=== PATIENT | male | born 1985 | race Caucasian/White ===

== ENCOUNTER 2017-05-18 04:23 | Inpatient (IN) | payer MEDICAID ==
[2017-05-18] VITALS (31 sets, daily range): BP systolic 93–144; BP diastolic 37–83
[~2017-05-18] VITALS: Ht 165.1 cm; Wt 122.1 kg
[~2017-05-18 04:23] MED LIST: OMEP20 PO; PROP10TA73 PO; [UNRECOGNIZED DRUG - CODE] OS
[2017-05-18 05:19] LABS: BASOPHILS # (AUTO) 0.01 K/uL (0.00-0.20); EOSINOPHILS # (AUTO) 0.06 K/uL (0.00-0.70); EOSINOPHILS % (AUTO) 0.21 % (1.0-6.0); LYMPHOCYTES # (AUTO) 2.1 K/uL (1.0-4.8); LYMPHOCYTES % (AUTO) 7.2 % (22.0-44.0); MEAN CORPUSCULAR HEMOGLOBIN 34.5 pg (26.0-34.0); MEAN CORPUSCULAR HGB CONC 34.9 G/dL (31.0-37.0); MEAN CORPUSCULAR VOLUME 99 fL (80-100); MONOCYTES # (AUTO) 2.5 K/uL (0.1-1.0); MONOCYTES % (AUTO) 8.6 % (2.0-9.0); NEUTROPHILS # (AUTO) 24.2 K/uL (1.8-7.7); RED BLOOD CELL COUNT(AUTO) 1.58 MIL/uL (4.50-5.90); RED CELL DISTRIBUTION WIDTH 17.3 % (11.5-14.5)
[2017-05-18 05:30] LABS: CALCIUM, TOTAL 7.8 mg/dL (8.8-10.5); CREATININE 1.61 mg/dL (0.60-1.30); HEMATOCRIT 15.6 % (41-53); HEMOGLOBIN 5.5 g/dL (13.5-17.5)
[2017-05-18 05:31] LABS: INR 2.3 (0.9-1.1); PROTHROMBIN TIME 24.7 SEC (9.4-11.6)
[2017-05-18 05:32] LABS: WHITE BLOOD COUNT (AUTO) 32.5 K/uL (4.5-11.0)
[2017-05-18 05:36] LABS: ALBUMIN 1.5 g/dL (3.4-5.0); BILIRUBIN,TOTAL 12.3 mg/dL (0.1-1.0); TOTAL PROTEIN, SERUM 4.2 g/dL (6.4-8.2)
[2017-05-18] MEDS ORDERED: SODIUM CHLORIDE 0.9% 1,000 ML IV ONE ×2 (05:45→11:30)
[2017-05-18 05:51] LABS: PLATELET COUNT (AUTO) 101 K/uL (150-450); RBC MORPHOLOGY COMMENT ABNORMAL RBC MORPH
[2017-05-18] MEDS ORDERED: PANTOPRAZOLE SODIUM 40 MG/VIAL IVP ONE (06:00)
[2017-05-18 06:22] LABS: APPEARANCE,URINE CLOUDY (CLEAR); GLUCOSE, URINE (UA) NEGATIVE (NEGATIVE); KETONES,URINE TRACE mg/dL (NEGATIVE); LEUKOCYTE ESTERASE ,URINE TRACE (NEGATIVE); OCCULT BLOOD,URINE NEGATIVE (NEGATIVE); PROTEIN,URINE NEGATIVE (NEGATIVE)
[2017-05-18 06:24] LABS: ADD UA MICROSCOPIC YES
[2017-05-18 06:25] LABS: RBC,URINE 0-2 /HPF (0-2); SQUAMOUS EPITHELIAL CELL,UR Few /LPF (None Seen)
[2017-05-18] MEDS ORDERED: PANTOPRAZOLE SODIUM 80 MG in SODIUM CHLORIDE 0.9% 100 ML IV SCH (07:00)
[2017-05-18] MEDS ORDERED: 0.9% SODIUM CHLORIDE 10 ML SYRINGE IVP PRN (07:00)
[2017-05-18] MEDS ORDERED: OCTREOTIDE ACETATE 500 MCG in DEXTROSE 5%-WATER 97.5 ML IV SCH (07:00)
[2017-05-18] MEDS ORDERED: ONDANSETRON HCL 4 MG/2 ML VIAL IVP PRN (07:00)
[2017-05-18] MEDS ORDERED: LORazepam 2 MG/ML VIAL IVP ONE (08:15)
[2017-05-18] MEDS: PIPERACILLIN/TAZO 3.375 GM/D5W 50 ML IV SCH ×3 (09:00→19:52)
[2017-05-18 18:54] LABS: MEAN CORPUSCULAR HEMOGLOBIN 31.9 pg (26.0-34.0); MEAN CORPUSCULAR HGB CONC 34.5 G/dL (31.0-37.0); MEAN CORPUSCULAR VOLUME 93 fL (80-100); RED BLOOD CELL COUNT(AUTO) 2.07 MIL/uL (4.50-5.90); RED CELL DISTRIBUTION WIDTH 21.4 % (11.5-14.5); WHITE BLOOD COUNT (AUTO) 29.2 K/uL (4.5-11.0)
[2017-05-18 18:57] LABS: HEMATOCRIT 19.2 % (41-53); HEMOGLOBIN 6.6 g/dL (13.5-17.5)
[2017-05-18 18:58] LABS: INR 2.4 (0.9-1.1); PROTHROMBIN TIME 25.1 SEC (9.4-11.6)
[2017-05-18 18:59] LABS: ALBUMIN 1.3 g/dL (3.4-5.0); BILIRUBIN,TOTAL 11.6 mg/dL (0.1-1.0); CALCIUM, TOTAL 7.6 mg/dL (8.8-10.5); CREATININE 1.79 mg/dL (0.60-1.30); POTASSIUM 4.2 mmol/L (3.5-5.1)
[2017-05-18] MEDS ORDERED: PNEUMOCOCCAL VACCINE POLYVALENT 0.5 ML VIAL [PPSV23] IM ONE (19:30)
[2017-05-18] MEDS ORDERED: FUROSEMIDE 20 MG/2 ML VIAL IVP ONE (19:30)
[2017-05-18] MEDS ORDERED: INFLUENZA VIRUS VACCINE QVS 2017-18 (3YR+)/PF 60 MCG/0.5 ML SYRINGE IM ONE (19:30)
[2017-05-18 20:17] LABS: PLATELET COUNT (AUTO) 75 K/uL (150-450)
[2017-05-18 20:22] LABS: BAND NEUTROPHILS % (MANUAL) 7 % (1-5); LYMPHOCYTES % (MANUAL) 7 % (22-44); METAMYELOCYTES % 1 % (0-0); TOTAL CELLS COUNTED 100
[2017-05-18 20:23] LABS: WBC MORPHOLOGY TOXIC GRANULATION
[2017-05-18 20:24] LABS: RBC MORPHOLOGY COMMENT ABNORMAL RBC MORPH
[2017-05-19] VITALS (27 sets, daily range): BP systolic 123–154; BP diastolic 47–88
[2017-05-19 01:08] LABS: HEMATOCRIT 23.8 % (41-53); HEMOGLOBIN 7.9 g/dL (13.5-17.5)
[2017-05-19] MEDS ORDERED: MIDAZOLAM HCL 2 MG/2 ML VIAL IVP ONE (01:48)
[2017-05-19] MEDS ORDERED: PROPOFOL 1% 20 ML VIAL IVP ONE (01:49)
[2017-05-19] MEDS ORDERED: LIDOCAINE HCL/PF 2% 5 ML VIAL IM ONE (01:49)
[2017-05-19] MEDS ORDERED: METOCLOPRAMIDE HCL 5 MG/ML 2 ML VIAL IVP ONE (01:49)
[2017-05-19] MEDS: PIPERACILLIN/TAZO 3.375 GM/D5W 50 ML IV SCH ×4 (03:39→20:19)
[2017-05-19 07:30] LABS: ALBUMIN 1.6 g/dL (3.4-5.0); BILIRUBIN,TOTAL 13.5 mg/dL (0.1-1.0); CALCIUM, TOTAL 7.7 mg/dL (8.8-10.5); CREATININE 1.53 mg/dL (0.60-1.30); POTASSIUM 3.7 mmol/L (3.5-5.1); TOTAL PROTEIN, SERUM 4.3 g/dL (6.4-8.2)
[2017-05-19 07:32] LABS: MEAN CORPUSCULAR HGB CONC 34.3 G/dL (31.0-37.0); MEAN CORPUSCULAR VOLUME 91 fL (80-100); RED BLOOD CELL COUNT(AUTO) 2.23 MIL/uL (4.50-5.90); RED CELL DISTRIBUTION WIDTH 23.6 % (11.5-14.5)
[2017-05-19 07:38] LABS: INR 1.8 (0.9-1.1); PROTHROMBIN TIME 19.4 SEC (9.4-11.6)
[2017-05-19 08:07] LABS: HEPATITIS Bs ANTIGEN SCREEN P Negative (Negative); HEPATITIS C AB SCREEN <0.1 s/co ratio (0.0-0.9)
[2017-05-19 08:48] LABS: HEMOGLOBIN 6.9 g/dL (13.5-17.5)
[2017-05-19 08:49] LABS: HEMATOCRIT 20.1 % (41-53)
[2017-05-19] MEDS ORDERED: IPRATROPIUM BROMIDE 0.5 MG/2.5 ML NEB SOLUTION NEB PRN (09:30)
[2017-05-19] MEDS ORDERED: ALBUTEROL SULFATE 2.5 MG/0.5 ML NEB SOLUTION NEB PRN (09:30)
[2017-05-19] MEDS: PANTOPRAZOLE SODIUM 80 MG in SODIUM CHLORIDE 0.9% 100 ML IV SCH ×2 (09:30→20:16)
[2017-05-19] MEDS ORDERED: MORPHINE SULFATE 2 MG/ML SYRINGE IVP PRN (09:30)
[2017-05-19] MEDS ORDERED: ONDANSETRON HCL 4 MG/2 ML VIAL IVP PRN (09:30)
[2017-05-19] MEDS ORDERED: MAGNESIUM HYDROXIDE SUSPENSION 30 ML UDCUP PO PRN (09:30)
[2017-05-19] MEDS ORDERED: BISACODYL 10 MG RECTAL RECTAL SUPPOSITORY PR PRN (09:30)
[2017-05-19] MEDS ORDERED: LORazepam 2 MG/ML VIAL IVP PRN (09:45)
[2017-05-19] MEDS: ChlordiazePOXIDE HCL 25 MG CAPSULE PO SCH ×2 (12:57→18:28)
[2017-05-19] MEDS: ALBUMIN HUMAN 25%-25GM/100ML 100 ML IV SCH (15:10)
[2017-05-19 15:22] LABS: BAND NEUTROPHILS % (MANUAL) 7 % (1-5); LYMPHOCYTES % (MANUAL) 6 % (22-44); METAMYELOCYTES % 3 % (0-0); TOTAL CELLS COUNTED 100
[2017-05-19 15:23] LABS: RBC MORPHOLOGY COMMENT ABNORMAL R
[2017-05-19 15:24] LABS: PLATELET COUNT (AUTO) 60 K/uL (150-450)
[2017-05-19] MEDS ORDERED: FUROSEMIDE 40 MG/4 ML VIAL IVP SCH (16:00)
[2017-05-19 16:35] LABS: HEMATOCRIT 22.1 % (41-53); HEMOGLOBIN 7.6 g/dL (13.5-17.5)
[2017-05-19] MEDS: DOCUSATE SODIUM 100 MG CAPSULE PO SCH (20:20)
[2017-05-19 22:33] LABS: HEMATOCRIT 21.5 % (41-53); HEMOGLOBIN 7.3 g/dL (13.5-17.5)
[2017-05-20] MEDS: ChlordiazePOXIDE HCL 25 MG CAPSULE PO SCH ×4 (01:40→18:00)
[2017-05-20 03:32] VITALS: BP 134/58
[2017-05-20] MEDS: PIPERACILLIN/TAZO 3.375 GM/D5W 50 ML IV SCH ×4 (03:50→20:03)
[2017-05-20] MEDS: PANTOPRAZOLE SODIUM 80 MG in SODIUM CHLORIDE 0.9% 100 ML IV SCH (06:02)
[2017-05-20 07:38] LABS: INR 1.9 (0.9-1.1); PROTHROMBIN TIME 20.1 SEC (9.4-11.6)
[2017-05-20 07:45] VITALS: BP 116/67
[2017-05-20 07:48] LABS: HEMATOCRIT 25.1 % (41-53); HEMOGLOBIN 8.5 g/dL (13.5-17.5); MEAN CORPUSCULAR HEMOGLOBIN 30.7 pg (26.0-34.0); MEAN CORPUSCULAR HGB CONC 33.6 G/dL (31.0-37.0); MEAN CORPUSCULAR VOLUME 91 fL (80-100); RED BLOOD CELL COUNT(AUTO) 2.76 MIL/uL (4.50-5.90); RED CELL DISTRIBUTION WIDTH 22.8 % (11.5-14.5); WHITE BLOOD COUNT (AUTO) 28.3 K/uL (4.5-11.0)
[2017-05-20 08:05] LABS: ALANINE AMINOTRANSFERASE 51 U/L (12-78); ALBUMIN 2.2 g/dL (3.4-5.0); ANION GAP 6 mmol/L (8-16); ASPARTATE AMINOTRANSFERASE 140 U/L (15-37); BILIRUBIN,TOTAL 15.3 mg/dL (0.1-1.0); CARBON DIOXIDE 27 mmol/L (22-29); CHLORIDE 101 mmol/L (98-107); CREATININE 1.15 mg/dL (0.60-1.30); GLOMERULAR FILTR. RATE CALC > 60 mL/min (>60); POTASSIUM 3.2 mmol/L (3.5-5.1); SODIUM SERUM 134 mmol/L (136-145); TOTAL PROTEIN, SERUM 5.2 g/dL (6.4-8.2); UREA NITROGEN, BLOOD 36 mg/dL (7-18)
[2017-05-20] MEDS ORDERED: PANTOPRAZOLE SODIUM 40 MG/VIAL IVP SCH (09:00)
[2017-05-20] MEDS: DOCUSATE SODIUM 100 MG CAPSULE PO SCH ×2 (09:00→20:04)
[2017-05-20] MEDS ORDERED: SODIUM CHLORIDE 0.9% 1,000 ML IV ONE ×2 (09:53→10:30)
[2017-05-20 10:07] LABS: PLATELET COUNT (AUTO) 49 K/uL (150-450)
[2017-05-20 10:16] LABS: BAND NEUTROPHILS % (MANUAL) 10 % (1-5); LYMPHOCYTES % (MANUAL) 11 % (22-44); METAMYELOCYTES % 5 % (0-0); MYELOCYTES % 1 % (0-0); TOTAL CELLS COUNTED 100
[2017-05-20 10:18] LABS: RBC MORPHOLOGY COMMENT ABNORMAL R
[2017-05-20 12:18] VITALS: BP 121/71
[2017-05-20] MEDS: FUROSEMIDE 40 MG/4 ML VIAL IVP SCH (12:30)
[2017-05-20] MEDS: FOLIC ACID 1 MG TABLET PO SCH (12:30)
[2017-05-20] MEDS: SPIRONOLACTONE 50 MG TABLET PO SCH (12:30)
[2017-05-20] MEDS: MULTIVITAMINS, THERAPEUTIC TABLET PO SCH (12:30)
[2017-05-20] MEDS: ALBUMIN HUMAN 25%-25GM/100ML 100 ML IV SCH (12:31)
[2017-05-20 15:36] VITALS: BP 122/82
[2017-05-20] MEDS ORDERED: POTASSIUM CHLORIDE 20 MEQ ER TABLET PO ONE (16:15)
[2017-05-20] MEDS: THIAMINE HCL 100 MG TABLET PO SCH (16:24)
[2017-05-20] MEDS: PANTOPRAZOLE SODIUM 40 MG/VIAL IVP SCH (20:03)
[2017-05-20] MEDS: ACETAMINOPHEN 325 MG TABLET PO PRN (20:04)
[2017-05-20 20:27] VITALS: BP 130/58
[2017-05-20 23:56] VITALS: BP 116/51
[2017-05-21] MEDS: ChlordiazePOXIDE HCL 25 MG CAPSULE PO SCH ×5 (00:17→23:59)
[2017-05-21] MEDS ORDERED: LIDOCAINE HCL/PF 2% 5 ML VIAL IM ONE (00:34)
[2017-05-21] MEDS ORDERED: PROPOFOL 1% 20 ML VIAL IVP ONE (00:34)
[2017-05-21] MEDS: PIPERACILLIN/TAZO 3.375 GM/D5W 50 ML IV SCH ×4 (03:38→21:46)
[2017-05-21 05:16] VITALS: BP 111/50
[2017-05-21 06:11] LABS: HEMATOCRIT 23.4 % (41-53); HEMOGLOBIN 8.1 g/dL (13.5-17.5); MEAN CORPUSCULAR HEMOGLOBIN 31.4 pg (26.0-34.0); MEAN CORPUSCULAR HGB CONC 34.7 G/dL (31.0-37.0); MEAN CORPUSCULAR VOLUME 91 fL (80-100); PLATELET COUNT (AUTO) 46 K/uL (150-450); RED BLOOD CELL COUNT(AUTO) 2.58 MIL/uL (4.50-5.90); RED CELL DISTRIBUTION WIDTH 22.4 % (11.5-14.5)
[2017-05-21 06:14] LABS: WHITE BLOOD COUNT (AUTO) 24.7 K/uL (4.5-11.0)
[2017-05-21 06:15] LABS: INR 2.1 (0.9-1.1); PROTHROMBIN TIME 22.5 SEC (9.4-11.6)
[2017-05-21 06:26] LABS: ALANINE AMINOTRANSFERASE 49 U/L (12-78); ALBUMIN 2.2 g/dL (3.4-5.0); ANION GAP 9 mmol/L (8-16); ASPARTATE AMINOTRANSFERASE 133 U/L (15-37); BILIRUBIN,TOTAL 14.4 mg/dL (0.1-1.0); CALCIUM, TOTAL 7.6 mg/dL (8.8-10.5); CARBON DIOXIDE 26 mmol/L (22-29); CHLORIDE 99 mmol/L (98-107); CREATININE 1.26 mg/dL (0.60-1.30); GLOMERULAR FILTR. RATE CALC > 60 mL/min (>60); SODIUM SERUM 134 mmol/L (136-145); TOTAL PROTEIN, SERUM 5.1 g/dL (6.4-8.2); UREA NITROGEN, BLOOD 30 mg/dL (7-18)
[2017-05-21 06:54] LABS: POTASSIUM 2.9 mmol/L (3.5-5.1)
[2017-05-21 07:02] LABS: BAND NEUTROPHILS % (MANUAL) 8 % (1-5); LYMPHOCYTES % (MANUAL) 13 % (22-44); TOTAL CELLS COUNTED 100
[2017-05-21 07:45] VITALS: BP 143/86
[2017-05-21 07:59] VITALS: BP 115/73
[2017-05-21] MEDS: FOLIC ACID 1 MG TABLET PO SCH (08:06)
[2017-05-21] MEDS: DOCUSATE SODIUM 100 MG CAPSULE PO SCH ×2 (08:06→21:42)
[2017-05-21] MEDS: THIAMINE HCL 100 MG TABLET PO SCH (08:06)
[2017-05-21] MEDS: PANTOPRAZOLE SODIUM 40 MG/VIAL IVP SCH (08:06)
[2017-05-21] MEDS: MULTIVITAMINS, THERAPEUTIC TABLET PO SCH (08:06)
[2017-05-21] MEDS: SPIRONOLACTONE 50 MG TABLET PO SCH (08:07)
[2017-05-21] MEDS: HYDROCODONE/ACETAMINOPHEN 5-325 MG TABLET PO PRN (10:51)
[2017-05-21] MEDS: ALBUMIN HUMAN 25%-25GM/100ML 100 ML IV SCH (10:52)
[2017-05-21 11:37] VITALS: BP 109/53
[2017-05-21] MEDS ORDERED: POTASSIUM CHLORIDE 20 MEQ ER TABLET PO ONE ×2 (13:30→17:30)
[2017-05-21] MEDS: FUROSEMIDE 40 MG/4 ML VIAL IVP SCH (13:35)
[2017-05-21 15:36] VITALS: BP 136/64
[2017-05-21 20:01] VITALS: BP 121/57
[2017-05-22] VITALS (8 sets, daily range): BP systolic 108–120; BP diastolic 44–60
[2017-05-22] MEDS: PIPERACILLIN/TAZO 3.375 GM/D5W 50 ML IV SCH ×4 (03:46→20:46)
[2017-05-22] MEDS: ChlordiazePOXIDE HCL 25 MG CAPSULE PO SCH ×4 (05:26→23:20)
[2017-05-22 08:09] LABS: INR 2.2 (0.9-1.1); PROTHROMBIN TIME 22.8 SEC (9.4-11.6)
[2017-05-22] MEDS: SPIRONOLACTONE 50 MG TABLET PO SCH (08:10)
[2017-05-22] MEDS: FUROSEMIDE 40 MG/4 ML VIAL IVP SCH (08:10)
[2017-05-22] MEDS: PANTOPRAZOLE SODIUM 40 MG/VIAL IVP SCH ×2 (08:10→20:46)
[2017-05-22 08:11] LABS: ALANINE AMINOTRANSFERASE 45 U/L (12-78); ANION GAP 10 mmol/L (8-16); ASPARTATE AMINOTRANSFERASE 120 U/L (15-37); BILIRUBIN,TOTAL 12.6 mg/dL (0.1-1.0); CALCIUM, TOTAL 7.6 mg/dL (8.8-10.5); CARBON DIOXIDE 22 mmol/L (22-29); CHLORIDE 100 mmol/L (98-107); CREATININE 1.22 mg/dL (0.60-1.30); GLOMERULAR FILTR. RATE CALC > 60 mL/min (>60); POTASSIUM 3.9 mmol/L (3.5-5.1); SODIUM SERUM 132 mmol/L (136-145); TOTAL PROTEIN, SERUM 4.7 g/dL (6.4-8.2); UREA NITROGEN, BLOOD 25 mg/dL (7-18)
[2017-05-22] MEDS: DOCUSATE SODIUM 100 MG CAPSULE PO SCH ×2 (08:11→20:43)
[2017-05-22] MEDS: MULTIVITAMINS, THERAPEUTIC TABLET PO SCH (08:11)
[2017-05-22] MEDS: THIAMINE HCL 100 MG TABLET PO SCH (08:11)
[2017-05-22] MEDS: FOLIC ACID 1 MG TABLET PO SCH (08:11)
[2017-05-22 08:53] LABS: HEMATOCRIT 24.5 % (41-53); HEMOGLOBIN 8.4 g/dL (13.5-17.5); MEAN CORPUSCULAR HEMOGLOBIN 31.1 pg (26.0-34.0); MEAN CORPUSCULAR HGB CONC 34.4 G/dL (31.0-37.0); MEAN CORPUSCULAR VOLUME 91 fL (80-100); RED CELL DISTRIBUTION WIDTH 24.8 % (11.5-14.5); WHITE BLOOD COUNT (AUTO) 14.8 K/uL (4.5-11.0)
[2017-05-22 09:29] LABS: BAND NEUTROPHILS % (MANUAL) 2 % (1-5); EOSINOPHILS % (MANUAL) 1 % (1-6); LYMPHOCYTES % (MANUAL) 14 % (22-44); METAMYELOCYTES % 1 % (0-0); TOTAL CELLS COUNTED 100
[2017-05-22 09:30] LABS: WBC MORPHOLOGY TOXIC GRANULATION
[2017-05-22 09:31] LABS: PLATELET COUNT (AUTO) 45 K/uL (150-450)
[2017-05-22 09:32] LABS: RBC MORPHOLOGY COMMENT ABNORMAL RBC MORPH
[2017-05-22] MEDS: LACTULOSE 20 GM/30 ML SOLUTION UDCUP PO SCH ×2 (11:14→20:46)
[2017-05-22] MEDS: ALBUMIN HUMAN 25%-25GM/100ML 100 ML IV SCH (11:14)
[2017-05-22] MEDS: HYDROCODONE/ACETAMINOPHEN 5-325 MG TABLET PO PRN (18:34)
[2017-05-22] MEDS: ZOLPIDEM TARTRATE 5 MG TABLET PO PRN (20:46)
[2017-05-23] MEDS: PIPERACILLIN/TAZO 3.375 GM/D5W 50 ML IV SCH ×4 (03:47→20:57)
[2017-05-23 05:17] VITALS: BP 132/58
[2017-05-23] MEDS: ChlordiazePOXIDE HCL 25 MG CAPSULE PO SCH ×4 (05:27→23:36)
[2017-05-23] MEDS: FUROSEMIDE 40 MG/4 ML VIAL IVP SCH (08:29)
[2017-05-23] MEDS: PANTOPRAZOLE SODIUM 40 MG/VIAL IVP SCH ×2 (08:29→19:59)
[2017-05-23] MEDS: MULTIVITAMINS, THERAPEUTIC TABLET PO SCH (08:30)
[2017-05-23] MEDS: THIAMINE HCL 100 MG TABLET PO SCH (08:30)
[2017-05-23] MEDS: DOCUSATE SODIUM 100 MG CAPSULE PO SCH ×2 (08:30→19:59)
[2017-05-23] MEDS: FOLIC ACID 1 MG TABLET PO SCH (08:30)
[2017-05-23] MEDS: LACTULOSE 20 GM/30 ML SOLUTION UDCUP PO SCH ×2 (08:31→19:59)
[2017-05-23] MEDS: SPIRONOLACTONE 50 MG TABLET PO SCH (08:31)
[2017-05-23] MEDS: HYDROCODONE/ACETAMINOPHEN 5-325 MG TABLET PO PRN (08:34)
[2017-05-23] MEDS: ALBUMIN HUMAN 25%-25GM/100ML 100 ML IV SCH ×3 (09:16→19:59)
[2017-05-23 10:21] LABS: APPEARANCE,URINE CLEAR (CLEAR); GLUCOSE, URINE (UA) NEGATIVE (NEGATIVE); KETONES,URINE NEGATIVE (NEGATIVE); LEUKOCYTE ESTERASE ,URINE NEGATIVE (NEGATIVE); OCCULT BLOOD,URINE NEGATIVE (NEGATIVE); PH,URINE 6.5 (5.0-8.0); PROTEIN,URINE NEGATIVE (NEGATIVE)
[2017-05-23 10:43] LABS: RBC,URINE None Seen /HPF (0-2); WBC,URINE None Seen /HPF (0-5)
[2017-05-23 10:44] LABS: SQUAMOUS EPITHELIAL CELL,UR Rare /LPF (None Seen)
[2017-05-23 11:02] VITALS: BP 126/43
[2017-05-23 15:03] VITALS: BP 108/81
[2017-05-23 19:53] VITALS: BP 110/61
[2017-05-24] VITALS (7 sets, daily range): BP systolic 103–121; BP diastolic 38–72
[2017-05-24] MEDS: HYDROCODONE/ACETAMINOPHEN 5-325 MG TABLET PO PRN ×2 (01:17→09:44)
[2017-05-24] MEDS: ALBUMIN HUMAN 25%-25GM/100ML 100 ML IV SCH ×4 (03:00→20:12)
[2017-05-24] MEDS: PIPERACILLIN/TAZO 3.375 GM/D5W 50 ML IV SCH ×4 (03:36→20:13)
[2017-05-24] MEDS: ChlordiazePOXIDE HCL 25 MG CAPSULE PO SCH ×3 (05:48→18:29)
[2017-05-24 06:30] LABS: INR 2.1 (0.9-1.1)
[2017-05-24 06:39] LABS: ALBUMIN 3.3 g/dL (3.4-5.0); BILIRUBIN,TOTAL 12.6 mg/dL (0.1-1.0); CALCIUM, TOTAL 8.1 mg/dL (8.8-10.5); CREATININE 1.56 mg/dL (0.60-1.30); MAGNESIUM 1.9 mg/dL (1.80-2.40); PHOSPHORUS 3.7 mg/dL (2.5-4.9); POTASSIUM 3.5 mmol/L (3.5-5.1); TOTAL PROTEIN, SERUM 5.6 g/dL (6.4-8.2)
[2017-05-24 06:42] LABS: EOSINOPHILS # (AUTO) 0.11 K/uL (0.00-0.70); EOSINOPHILS % (AUTO) 1.04 % (1.0-6.0); LYMPHOCYTES # (AUTO) 1.2 K/uL (1.0-4.8); LYMPHOCYTES % (AUTO) 11.3 % (22.0-44.0); MEAN CORPUSCULAR HEMOGLOBIN 31.1 pg (26.0-34.0); MEAN CORPUSCULAR HGB CONC 33.6 G/dL (31.0-37.0); MEAN CORPUSCULAR VOLUME 92 fL (80-100); MONOCYTES # (AUTO) 1.5 K/uL (0.1-1.0); MONOCYTES % (AUTO) 14.3 % (2.0-9.0); NEUTROPHILS # (AUTO) 7.5 K/uL (1.8-7.7); NEUTROPHILS % (AUTO) 73.4 % (40.0-70.0); PLATELET COUNT (AUTO) 42 K/uL (150-450); RED BLOOD CELL COUNT(AUTO) 2.23 MIL/uL (4.50-5.90); RED CELL DISTRIBUTION WIDTH 27.9 % (11.5-14.5); WHITE BLOOD COUNT (AUTO) 10.2 K/uL (4.5-11.0)
[2017-05-24 06:50] LABS: HEMOGLOBIN 6.9 g/dL (13.5-17.5)
[2017-05-24 06:51] LABS: HEMATOCRIT 20.6 % (41-53)
[2017-05-24 06:59] LABS: URIC ACID 4.3 mg/dL (2.6-7.2)
[2017-05-24 08:35] LABS: BASOPHILS % (AUTO) 0.2 % (0.0-2.0); EOSINOPHILS % (AUTO) 0.7 % (1.0-6.0); HEMOGLOBIN 7.2 g/dL (13.5-17.5); LYMPHOCYTES # (AUTO) 0.7 K/uL (1.0-4.8); LYMPHOCYTES % (AUTO) 6.2 % (22.0-44.0); MEAN CORPUSCULAR HEMOGLOBIN 31.8 pg (26.0-34.0); MEAN CORPUSCULAR HGB CONC 34.7 G/dL (31.0-37.0); MEAN CORPUSCULAR VOLUME 92 fL (80-100); MONOCYTES # (AUTO) 1.2 K/uL (0.1-1.0); MONOCYTES % (AUTO) 11.5 % (2.0-9.0); NEUTROPHILS # (AUTO) 8.8 K/uL (1.8-7.7); NEUTROPHILS % (AUTO) 81.4 % (40.0-70.0); PLATELET COUNT (AUTO) 55 K/uL (150-450); RED BLOOD CELL COUNT(AUTO) 2.27 MIL/uL (4.50-5.90); RED CELL DISTRIBUTION WIDTH 26.9 % (11.5-14.5); WHITE BLOOD COUNT (AUTO) 10.8 K/uL (4.5-11.0)
[2017-05-24 08:41] LABS: HEMATOCRIT 20.8 % (41-53)
[2017-05-24] MEDS: FUROSEMIDE 40 MG/4 ML VIAL IVP SCH (09:38)
[2017-05-24] MEDS: THIAMINE HCL 100 MG TABLET PO SCH (09:39)
[2017-05-24] MEDS: MULTIVITAMINS, THERAPEUTIC TABLET PO SCH (09:39)
[2017-05-24] MEDS: SPIRONOLACTONE 50 MG TABLET PO SCH (09:39)
[2017-05-24 09:40] LABS: RBC MORPHOLOGY COMMENT DIMORPHIC RBC
[2017-05-24] MEDS: LACTULOSE 20 GM/30 ML SOLUTION UDCUP PO SCH ×2 (09:40→20:13)
[2017-05-24] MEDS: DOCUSATE SODIUM 100 MG CAPSULE PO SCH ×2 (09:41→20:13)
[2017-05-24] MEDS: FOLIC ACID 1 MG TABLET PO SCH (09:42)
[2017-05-24 09:43] LABS: RBC MORPHOLOGY COMMENT DIMORPHIC RBC
[2017-05-24] MEDS: PANTOPRAZOLE SODIUM 40 MG/VIAL IVP SCH ×2 (09:43→20:13)
[2017-05-25] VITALS (14 sets, daily range): BP systolic 98–124; BP diastolic 47–73
[2017-05-25] MEDS: ChlordiazePOXIDE HCL 25 MG CAPSULE PO SCH ×5 (01:24→23:28)
[2017-05-25] MEDS: ALBUMIN HUMAN 25%-25GM/100ML 100 ML IV SCH ×4 (01:57→20:12)
[2017-05-25] MEDS: PIPERACILLIN/TAZO 3.375 GM/D5W 50 ML IV SCH ×4 (01:57→20:12)
[2017-05-25] MEDS: HYDROCODONE/ACETAMINOPHEN 5-325 MG TABLET PO PRN ×3 (01:59→20:14)
[2017-05-25 06:57] LABS: CALCIUM, TOTAL 8.9 mg/dL (8.8-10.5); CREATININE 2.03 mg/dL (0.60-1.30); PHOSPHORUS 3.9 mg/dL (2.5-4.9); POTASSIUM 3.7 mmol/L (3.5-5.1)
[2017-05-25 07:00] LABS: BASOPHILS # (AUTO) 0.01 K/uL (0.00-0.20); BASOPHILS % (AUTO) 0.1 % (0.0-2.0); EOSINOPHILS # (AUTO) 0.09 K/uL (0.00-0.70); EOSINOPHILS % (AUTO) 0.77 % (1.0-6.0); LYMPHOCYTES # (AUTO) 0.5 K/uL (1.0-4.8); LYMPHOCYTES % (AUTO) 4.8 % (22.0-44.0); MEAN CORPUSCULAR HEMOGLOBIN 31.5 pg (26.0-34.0); MEAN CORPUSCULAR HGB CONC 33.8 G/dL (31.0-37.0); MEAN CORPUSCULAR VOLUME 93 fL (80-100); MONOCYTES # (AUTO) 1.1 K/uL (0.1-1.0); NEUTROPHILS # (AUTO) 9.4 K/uL (1.8-7.7); NEUTROPHILS % (AUTO) 84.4 % (40.0-70.0); PLATELET COUNT (AUTO) 48 K/uL (150-450); RED BLOOD CELL COUNT(AUTO) 2.01 MIL/uL (4.50-5.90); RED CELL DISTRIBUTION WIDTH 27.6 % (11.5-14.5); WHITE BLOOD COUNT (AUTO) 11.1 K/uL (4.5-11.0)
[2017-05-25 07:19] LABS: HEMATOCRIT 18.7 % (41-53); HEMOGLOBIN 6.3 g/dL (13.5-17.5)
[2017-05-25 07:50] LABS: RBC MORPHOLOGY COMMENT DIMORPHIC RBC
[2017-05-25] MEDS: FOLIC ACID 1 MG TABLET PO SCH (09:05)
[2017-05-25] MEDS: PANTOPRAZOLE SODIUM 40 MG/VIAL IVP SCH ×2 (09:05→20:12)
[2017-05-25] MEDS: SPIRONOLACTONE 50 MG TABLET PO SCH (09:05)
[2017-05-25] MEDS: DOCUSATE SODIUM 100 MG CAPSULE PO SCH ×2 (09:06→21:00)
[2017-05-25] MEDS: FUROSEMIDE 40 MG/4 ML VIAL IVP SCH (09:06)
[2017-05-25] MEDS: LACTULOSE 20 GM/30 ML SOLUTION UDCUP PO SCH ×2 (09:06→20:13)
[2017-05-25] MEDS: MULTIVITAMINS, THERAPEUTIC TABLET PO SCH (09:06)
[2017-05-25] MEDS: THIAMINE HCL 100 MG TABLET PO SCH (09:06)
[2017-05-25] MEDS: ZOLPIDEM TARTRATE 5 MG TABLET PO PRN (20:13)
[2017-05-26] VITALS (14 sets, daily range): BP systolic 105–142; BP diastolic 51–77
[2017-05-26] MEDS: ALBUMIN HUMAN 25%-25GM/100ML 100 ML IV SCH ×4 (02:28→21:48)
[2017-05-26] MEDS: PIPERACILLIN/TAZO 3.375 GM/D5W 50 ML IV SCH ×4 (02:28→21:02)
[2017-05-26] MEDS: ChlordiazePOXIDE HCL 25 MG CAPSULE PO SCH ×3 (06:13→18:16)
[2017-05-26 06:51] LABS: ALBUMIN 4.3 g/dL (3.4-5.0); BILIRUBIN,TOTAL 14.1 mg/dL (0.1-1.0); CALCIUM, TOTAL 8.8 mg/dL (8.8-10.5); CREATININE 2.44 mg/dL (0.60-1.30); MAGNESIUM 2.1 mg/dL (1.80-2.40); PHOSPHORUS 4.5 mg/dL (2.5-4.9); POTASSIUM 3.8 mmol/L (3.5-5.1); TOTAL PROTEIN, SERUM 6.2 g/dL (6.4-8.2)
[2017-05-26 07:14] LABS: MEAN CORPUSCULAR HEMOGLOBIN 31.4 pg (26.0-34.0); MEAN CORPUSCULAR HGB CONC 33.5 G/dL (31.0-37.0); MEAN CORPUSCULAR VOLUME 94 fL (80-100); PLATELET COUNT (AUTO) 47 K/uL (150-450); RED BLOOD CELL COUNT(AUTO) 2.11 MIL/uL (4.50-5.90); RED CELL DISTRIBUTION WIDTH 24.7 % (11.5-14.5); WHITE BLOOD COUNT (AUTO) 11.3 K/uL (4.5-11.0)
[2017-05-26 07:18] LABS: HEMOGLOBIN 6.6 g/dL (13.5-17.5)
[2017-05-26 07:19] LABS: HEMATOCRIT 19.7 % (41-53)
[2017-05-26] MEDS ORDERED: SODIUM CHLORIDE 0.9% 250 ML IV ONE ×2 (08:08→13:51)
[2017-05-26] MEDS: PANTOPRAZOLE SODIUM 40 MG/VIAL IVP SCH ×2 (08:14→20:47)
[2017-05-26] MEDS: FUROSEMIDE 40 MG/4 ML VIAL IVP SCH (08:14)
[2017-05-26] MEDS: DOCUSATE SODIUM 100 MG CAPSULE PO SCH ×2 (08:16→21:00)
[2017-05-26] MEDS: LACTULOSE 20 GM/30 ML SOLUTION UDCUP PO SCH ×2 (08:16→20:47)
[2017-05-26] MEDS: SPIRONOLACTONE 50 MG TABLET PO SCH (08:16)
[2017-05-26] MEDS: MULTIVITAMINS, THERAPEUTIC TABLET PO SCH (08:17)
[2017-05-26] MEDS: FOLIC ACID 1 MG TABLET PO SCH (08:17)
[2017-05-26] MEDS: THIAMINE HCL 100 MG TABLET PO SCH (08:17)
[2017-05-26 08:21] LABS: EOSINOPHILS # (AUTO) 0.07 K/uL (0.00-0.70); EOSINOPHILS % (AUTO) 0.56 % (1.0-6.0); LYMPHOCYTES # (AUTO) 0.5 K/uL (1.0-4.8); LYMPHOCYTES % (AUTO) 4.3 % (22.0-44.0); MEAN CORPUSCULAR HGB CONC 34.2 G/dL (31.0-37.0); MEAN CORPUSCULAR VOLUME 93 fL (80-100); MONOCYTES # (AUTO) 1.1 K/uL (0.1-1.0); MONOCYTES % (AUTO) 8.7 % (2.0-9.0); NEUTROPHILS # (AUTO) 10.8 K/uL (1.8-7.7); PLATELET COUNT (AUTO) 47 K/uL (150-450); RED BLOOD CELL COUNT(AUTO) 2.12 MIL/uL (4.50-5.90); RED CELL DISTRIBUTION WIDTH 25.3 % (11.5-14.5); WHITE BLOOD COUNT (AUTO) 12.5 K/uL (4.5-11.0)
[2017-05-26 08:30] LABS: HEMATOCRIT 19.9 % (41-53); HEMOGLOBIN 6.8 g/dL (13.5-17.5); NEUTROPHILS % (AUTO) 86.4 % (40.0-70.0)
[2017-05-26 09:04] LABS: BAND NEUTROPHILS % (MANUAL) 5 % (1-5); LYMPHOCYTES % (MANUAL) 20 % (22-44); TOTAL CELLS COUNTED 100
[2017-05-26 09:05] LABS: RBC MORPHOLOGY COMMENT ABNORMAL RBC MORPH
[2017-05-26 10:06] LABS: RBC MORPHOLOGY COMMENT DIMORPHIC RBC
[2017-05-26] MEDS: MIDODRINE HCL 2.5 MG TABLET PO SCH ×3 (11:05→20:48)
[2017-05-26] MEDS: OCTREOTIDE ACETATE 100 MCG/ML VIAL SQ SCH ×3 (11:07→21:02)
[2017-05-26 12:37] LABS: APPEARANCE,URINE TURBID (CLEAR); GLUCOSE, URINE (UA) NEGATIVE (NEGATIVE); KETONES,URINE 15 mg/dL (NEGATIVE); LEUKOCYTE ESTERASE ,URINE MODERATE (NEGATIVE); OCCULT BLOOD,URINE LARGE (NEGATIVE); PROTEIN,URINE SEE CONFIRM (NEGATIVE)
[2017-05-26 13:06] LABS: SULFOSALICYLIC ACID,URINE 3+ (Negative)
[2017-05-26 13:07] LABS: RBC,URINE 26-50 /HPF (0-2); SQUAMOUS EPITHELIAL CELL,UR Few /LPF (None Seen)
[2017-05-26] MEDS: ACETAMINOPHEN 325 MG TABLET PO PRN ×2 (14:06→20:47)
[2017-05-27] VITALS (12 sets, daily range): BP systolic 104–133; BP diastolic 41–66
[2017-05-27] MEDS ORDERED: SODIUM CHLORIDE 0.9% 250 ML IV ONE (00:21)
[2017-05-27] MEDS: ChlordiazePOXIDE HCL 25 MG CAPSULE PO SCH ×2 (00:33→06:13)
[2017-05-27] MEDS: PIPERACILLIN/TAZO 3.375 GM/D5W 50 ML IV SCH ×2 (03:00→08:08)
[2017-05-27] MEDS: ALBUMIN HUMAN 25%-25GM/100ML 100 ML IV SCH ×2 (04:34→09:05)
[2017-05-27 06:57] LABS: BASOPHILS # (AUTO) 0.01 K/uL (0.00-0.20); BASOPHILS % (AUTO) 0.1 % (0.0-2.0); EOSINOPHILS # (AUTO) 0.09 K/uL (0.00-0.70); EOSINOPHILS % (AUTO) 0.66 % (1.0-6.0); HEMATOCRIT 21.9 % (41-53); HEMOGLOBIN 7.6 g/dL (13.5-17.5); LYMPHOCYTES # (AUTO) 0.7 K/uL (1.0-4.8); LYMPHOCYTES % (AUTO) 4.9 % (22.0-44.0); MEAN CORPUSCULAR HEMOGLOBIN 31.8 pg (26.0-34.0); MEAN CORPUSCULAR HGB CONC 34.6 G/dL (31.0-37.0); MEAN CORPUSCULAR VOLUME 92 fL (80-100); MONOCYTES # (AUTO) 1.5 K/uL (0.1-1.0); MONOCYTES % (AUTO) 10.3 % (2.0-9.0); NEUTROPHILS % (AUTO) 84.2 % (40.0-70.0); PLATELET COUNT (AUTO) 51 K/uL (150-450); RED BLOOD CELL COUNT(AUTO) 2.39 MIL/uL (4.50-5.90); RED CELL DISTRIBUTION WIDTH 22.5 % (11.5-14.5); WHITE BLOOD COUNT (AUTO) 14.2 K/uL (4.5-11.0)
[2017-05-27 07:18] LABS: ALBUMIN 4.6 g/dL (3.4-5.0); BILIRUBIN,TOTAL 15.8 mg/dL (0.1-1.0); CALCIUM, TOTAL 8.8 mg/dL (8.8-10.5); CREATININE 3.18 mg/dL (0.60-1.30); MAGNESIUM 2.2 mg/dL (1.80-2.40); PHOSPHORUS 4.7 mg/dL (2.5-4.9); POTASSIUM 3.7 mmol/L (3.5-5.1); TOTAL PROTEIN, SERUM 6.3 g/dL (6.4-8.2)
[2017-05-27] MEDS: DOCUSATE SODIUM 100 MG CAPSULE PO SCH (07:57)
[2017-05-27] MEDS: LACTULOSE 20 GM/30 ML SOLUTION UDCUP PO SCH (07:58)
[2017-05-27] MEDS: FUROSEMIDE 40 MG/4 ML VIAL IVP SCH (08:08)
[2017-05-27] MEDS: PANTOPRAZOLE SODIUM 40 MG/VIAL IVP SCH (08:08)
[2017-05-27] MEDS: MULTIVITAMINS, THERAPEUTIC TABLET PO SCH (08:09)
[2017-05-27] MEDS: FOLIC ACID 1 MG TABLET PO SCH (08:09)
[2017-05-27] MEDS: THIAMINE HCL 100 MG TABLET PO SCH (08:09)
[2017-05-27] MEDS: MIDODRINE HCL 2.5 MG TABLET PO SCH (08:09)
[2017-05-27] MEDS: SPIRONOLACTONE 50 MG TABLET PO SCH (08:09)
[2017-05-27] MEDS: OCTREOTIDE ACETATE 100 MCG/ML VIAL SQ SCH (08:11)
[2017-05-27] MEDS: HYDROCODONE/ACETAMINOPHEN 5-325 MG TABLET PO PRN (08:32)
[2017-05-27 09:31] LABS: RBC MORPHOLOGY COMMENT DIMORPHIC RBC
[2017-05-27] MEDS ORDERED: [UNRECOGNIZED DRUG - CODE] IVPB (11:08)
[2017-05-27] MEDS ORDERED: LIB25 PO (11:08)
[2017-05-27] MEDS ORDERED: FURO40I IV (11:09)
[2017-05-27] MEDS ORDERED: DSS100 PO (11:09)
[2017-05-27] MEDS ORDERED: FOLI1 PO (11:09)
[2017-05-27] MEDS ORDERED: MIDO2.5T10 PO (11:10)
[2017-05-27] MEDS ORDERED: LACT30L PO (11:10)
[2017-05-27] MEDS ORDERED: MULT1CAP32 PO (11:11)
[2017-05-27] MEDS ORDERED: PIPE3.379 IV (11:12)
[2017-05-27] MEDS ORDERED: OCTR100A SQ (11:12)
[2017-05-27] MEDS ORDERED: PANT40VI IV (11:12)
[2017-05-27] MEDS ORDERED: ACET-784 PO (11:13)
[2017-05-27] MEDS ORDERED: SPIR50 PO (11:13)
[2017-05-27] MEDS ORDERED: THIA100 PO (11:13)
[2017-05-27] MEDS ORDERED: AUD NEB (11:14)
[2017-05-27] MEDS ORDERED: BISA10S PR (11:20)
[2017-05-27] MEDS ORDERED: HYDR-309 PO (11:21)
[2017-05-27] MEDS ORDERED: IPRNEB NEB (11:22)
[2017-05-27] MEDS ORDERED: LORA10I IV (11:22)
[2017-05-27] MEDS ORDERED: MOM30 PO (11:23)
[2017-05-27] MEDS ORDERED: MORP2SYR IVP (11:25)
[2017-05-27] MEDS ORDERED: ONDA220I IV (11:27)
[2017-05-27] MEDS ORDERED: ZOLP5 PO (11:29)
== END 2017-05-27 11:05 | disposition short-term general hospital (02) | DRG 720 ==
LOC: EMS 04:24 → 5S 08:11
PROVIDERS: ADMIT Hospitalist; ATTEND Hospitalist
PROC: 0DJ08ZZ Inspection of Upper Intestinal Tract, Via Natural or Artificial Opening Endoscopic (ICD-10-PCS; principal; 2017-05-18 12:30)
PROC: 0DJ08ZZ Inspection of Upper Intestinal Tract, Via Natural or Artificial Opening Endoscopic (ICD-10-PCS; 2017-05-20)
DX: A41.9 Sepsis, unspecified organism (principal); K76.7 Hepatorenal syndrome; E43 Unspecified severe protein-calorie malnutrition; G93.41 Metabolic encephalopathy; N17.9 Acute kidney failure, unspecified; D68.9 Coagulation defect, unspecified; I85.00 Esophageal varices without bleeding; K76.6 Portal hypertension; K92.2 Gastrointestinal hemorrhage, unspecified; D69.6 Thrombocytopenia, unspecified; K70.11 Alcoholic hepatitis with ascites; K31.89 Other diseases of stomach and duodenum; R60.1 Generalized edema; D64.9 Anemia, unspecified; D50.0 Iron deficiency anemia secondary to blood loss (chronic); E87.6 Hypokalemia; F10.239 Alcohol dependence with withdrawal, unspecified; F12.90 Cannabis use, unspecified, uncomplicated; F41.9 Anxiety disorder, unspecified; G47.00 Insomnia, unspecified; I12.9 Hypertensive chronic kidney disease with stage 1 through stage 4 chronic kidney disease, or unspecified chronic kidney disease; K20.9 Esophagitis, unspecified; K70.31 Alcoholic cirrhosis of liver with ascites; K72.90 Hepatic failure, unspecified without coma; L03.115 Cellulitis of right lower limb; L03.116 Cellulitis of left lower limb; N18.9 Chronic kidney disease, unspecified; N20.0 Calculus of kidney; N48.89 Other specified disorders of penis; N50.89 Other specified disorders of the male genital organs; Z87.891 Personal history of nicotine dependence; Z28.21 Immunization not carried out because of patient refusal
CPT/HCPCS: 36430; 76705; 76770; 80074; 82570; 83735; 84100; 84300; 84540; 84550; 85007; 85014; 85018; 86850; 86900; 86901; 86920; 86927; 87040; 87086; 93005; 93971; 96361; 96365; 96366; 96368; 96375; 99291; C9113; J1940; J2250; J2354; J2405; J2543; J2704; J2765; J3490; J7030; J7050; J7060; P9016; P9017; P9046